=== PATIENT | male | born 2000 | race Caucasian/White ===

== ENCOUNTER 2021-02-15 07:00 | Emergency (ER) | payer OTHER ==
[~2021-02-15] VITALS: Ht 185.4 cm; Wt 133.0 kg
[2021-02-15 07:07] VITALS: BP 152/92
== END 2021-02-15 09:10 | disposition home or self-care (01) ==
LOC: ER 07:01
DX: M25.512 Pain in left shoulder (principal); Z88.1 Allergy status to other antibiotic agents
CPT/HCPCS: 73030; 99283